=== PATIENT | male | born 1980 | race Caucasian/White ===

== ENCOUNTER 2016-10-08 17:37 | Emergency (ER) | payer BC, SELFPAY ==
[2016-10-08] MEDS ORDERED: KETOROLAC 30 MG/ML VIAL (J1885) As Ordered ONE (18:45)
[2016-10-08] MEDS ORDERED: METHOCARBAMOL 1,000 MG/10 ML VIAL (J2800) As Ordered ONE (18:46)
--- NOTE | 2016-10-08 20:10 | REPUSA ---
CLINICAL HISTORY: Trauma. TECHNIQUE: Multiple axial images were obtained through the cervical spine. Images were also reconstru cted in coronal and sagittal planes. The study was performed without IV contrast. COMMENTS: There is no fracture or spondylolisthesis visualized. The paraspinal soft tissues are unremarkable. T here are no lytic or blastic lesions. Straightening of cervical lordosis is seen, suggesting muscular spasm. There is evidence of minimal m ultilevel disk disease, demonstrated by osteophytosis and endplate sclerosis. There is posterior dis c herniation at C5-6 producing mild foraminal and canal stenosis. IMPRESSION: 1. No fracture or spondylolisthesis. 2. Straightening of cervical lordosis is seen, suggesting muscular spasm. 3. Multilevel spondylosis most severe at C5-C6. Thank you for your kind referral of this patient.
--- NOTE | 2016-10-08 20:20 | REPUSA ---
CLINICAL HISTORY: Back pain. TECHNIQUE: Multiple axial images were obtained through the L1-L2, L2-L3, L3-L4, L4-L5 and L5-S1 inter spaces. Images were also reconstructed in coronal and sagittal planes. COMMENTS: There is no fracture visualized. The paraspinal soft tissues are unremarkable. There are no lytic or blastic lesions. Straightening of lumbar lordosis is seen, suggesting muscular spasm. There is evidence of multilevel disk disease, demonstrated by osteophytosis ad endplate sclerosis. Evaluation of individual levels reveals the following: At L5-S1, broad-based disk protrusion in conjunction with hypertrophic facet disease results in moder ate bilateral foraminal narrowing. Canal is mildly stenotic. At L4-L5, broad-based disk bulge, results in mild bilateral foraminal narrowing. Canal is patent. Remaining levels are unremarkable. IMPRESSION: 1. No fracture or spondylolisthesis. 2. Straightening of lumbar lordosis is seen, suggesting muscular spasm. 3. At L5-S1, broad-based disk protrusion in conjunction with hypertrophic facet disease results in mo derate bilateral foraminal narrowing. Canal is mildly stenotic. 4/. At L4-L5, broad-based disk bulge, results in mild bilateral foraminal narrowing. Canal is patent. Thank you for your kind referral of this patient.
--- NOTE | 2016-10-08 20:45 | EDDOCDS ---
Physician Documentation [facility] Name: Aaron Julian Age: 35 yrs Sex: Male : 1980 Arrival Date: 10/08/2016 Time: 17:37 Bed Private MD: Juan Manuel Torres B Disposition: 10/08/16 20:33 Discharged to Home/Self Care. Impression: Concussion without loss of consciousness, Contusion of left shoulder, Contusion of left knee, Strain of muscle, fascia and tendon at neck level, Strain of muscle, fascia and tendon of lower back. - Condition is Stable. - Discharge Instructions: Back Pain, Adult, Shoulder Pain, Knee Pain, Soft Tissue Injury of the Neck, Concussion, Adult, [id number]. - Prescriptions for Diclofenac Sodium 75 mg Oral Tablet, Delayed Release (E.C.) - take 1 tablet by ORAL route 2 times per day; 30 tablet. Robaxin- 750 750 mg Oral Tablet - take 1 tablet by ORAL route every 6 hours As needed; 40 tablet. - Medication Reconciliation, Local Pharmacy Hours form. - Follow up: Juan Manuel Torres; When: Call to arrange an appointment; Reason: Further diagnostic work-up, Recheck today's complaints, Continuance of care. - Problem is new. - Symptoms have improved. Historical: - Allergies: no known allergies; - Home Meds: 1. Day-Quil Unknown every 6 hours (Last dose: 10/08/2016 16:15) - PMHx: none; - PSHx: Orthopedic Surgery; Appendectomy; - Immunization history: Last tetanus immunization: - up to date. - Social history: Smoking status: Patient states was never smoker of tobacco. No barriers to communication noted, The patient speaks fluent Urdu, Speaks appropriately for age. - Family history: Not pertinent. - : The pt / caregiver states he / she is not on anticoagulants. Home medication list is obtained from the patient. - Exposure Risk Screening:: None identified. Vital Signs: 10/08 17:39 BP 144 / 89; Pulse 77; Resp 16; Temp 97.4; Pulse Ox 99% ; Weight 83.91 kg / 184.99 lbs; cmb Height 6 ft. 2 in. (187.96 cm); Pain 8/10; 19:51 BP 139 / 89; Pulse 65; Resp 16; Temp 98; Pulse Ox 97% ; Pain 5/10; cjh 20:41 Pain 5/10; jf3 17:39 Body Mass Index 23.75 (83.91 kg, 187.96 cm) cmb Trauma Score (Adult): 17:54 Eye Response: spontaneous(1); Verbal Response: oriented(1); Motor Response: obeys mlb1 commands(2); Systolic BP: > 89 mm Hg(4); Respiratory Rate: 10 to 29 per min(4); Konstantin Score: 15; Trauma Score: 12 MDM: 18:42 Apply Alma Delia Collar to Patient. ordered. btw 18:43 ketorolac 30 mg IM once ordered. btw 18:43 Robaxin 250 mg IM once ordered. btw 18:43 CT Head Without Contrast Ordered. EDMS 18:44 Shoulder, Complete Ordered. EDMS 18:44 Knee, Complete Ordered. EDMS 18:44 CT Spine,Cervical W/o Contrast Ordered. EDMS 18:44 CT Spine, Lumbar W/o Contrast Ordered. EDMS Administered Medications: 18:53 Drug: ketorolac 30 mg [ketorolac 30 mg/mL (1 mL) injection solution (1 mL)] Route: IM; jf3 Site: left gluteus; 19:52 Follow up: Response: No Adverse Reaction; Pain is decreased; reports pain at 5/10, [facility] "tolerable level and better than before" 18:55 Drug: Robaxin 250 mg [Robaxin 100 mg/mL injection solution (2.5 mL)] Route: IM; Site: jf3 right gluteus; Signatures: Dispatcher [employer] EDMS Aditya Yañez RN RN mlb1 Chris Umanzor PA PA btw Wilman Smith RN RN jf3 Mildred Claros RN [facility] MTDD
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
--- NOTE | 2016-10-09 08:19 | REP ---
Clinical: Trauma . Technique: Internal rotation, external rotation, and Y view left . Findings: No acute fracture or dislocation. The acromioclavicular and glenohumeral joints are intact. No periarticular calcifications or degenerative changes are appreciated. Sub acromial space is normal. Surrounding soft tissues are unremarkable. Impression: Normal left shoulder radiographs. No acute fracture or dislocation. Signed by Jensen Nielson MD 10/09/2016 08:09 A
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
--- NOTE | 2016-10-10 21:45 | EDDOCDS ---
Physician Documentation [facility] Name: Aaron Julian Age: 35 yrs Sex: Male : 1980 Arrival Date: 10/08/2016 Time: 17:37 Bed Private MD: Juan Manuel Torres B Disposition: 10/08/16 20:33 Discharged to Home/Self Care. Impression: Concussion without loss of consciousness, Contusion of left shoulder, Contusion of left knee, Strain of muscle, fascia and tendon at neck level, Strain of muscle, fascia and tendon of lower back. - Condition is Stable. - Discharge Instructions: Back Pain, Adult, Shoulder Pain, Knee Pain, Soft Tissue Injury of the Neck, Concussion, Adult, [id number]. - Prescriptions for Diclofenac Sodium 75 mg Oral Tablet, Delayed Release (E.C.) - take 1 tablet by ORAL route 2 times per day; 30 tablet. Robaxin- 750 750 mg Oral Tablet - take 1 tablet by ORAL route every 6 hours As needed; 40 tablet. - Medication Reconciliation, Local Pharmacy Hours form. - Follow up: Juan Manuel Torres; When: Call to arrange an appointment; Reason: Further diagnostic work-up, Recheck today's complaints, Continuance of care. - Problem is new. - Symptoms have improved. Historical: - Allergies: no known allergies; - Home Meds: 1. Day-Quil Unknown every 6 hours (Last dose: 10/08/2016 16:15) - PMHx: none; - PSHx: Orthopedic Surgery; Appendectomy; - Immunization history: Last tetanus immunization: - up to date. - Social history: Smoking status: Patient states was never smoker of tobacco. No barriers to communication noted, The patient speaks fluent Hungarian, Speaks appropriately for age. - Family history: Not pertinent. - : The pt / caregiver states he / she is not on anticoagulants. Home medication list is obtained from the patient. - Exposure Risk Screening:: None identified. Vital Signs: 10/08 17:39 BP 144 / 89; Pulse 77; Resp 16; Temp 97.4; Pulse Ox 99% ; Weight 83.91 kg / 184.99 lbs; cmb Height 6 ft. 2 in. (187.96 cm); Pain 8/10; 19:51 BP 139 / 89; Pulse 65; Resp 16; Temp 98; Pulse Ox 97% ; Pain 5/10; cjh 20:41 Pain 5/10; jf3 17:39 Body Mass Index 23.75 (83.91 kg, 187.96 cm) [facility] Trauma Score (Adult): 17:54 Eye Response: spontaneous(1); Verbal Response: oriented(1); Motor Response: obeys mlb1 commands(2); Systolic BP: > 89 mm Hg(4); Respiratory Rate: 10 to 29 per min(4); Nelson Score: 15; Trauma Score: 12 MDM: 18:42 Apply Alma Delia Collar to Patient. ordered. btw 18:43 ketorolac 30 mg IM once ordered. btw 18:43 Robaxin 250 mg IM once ordered. btw 18:43 CT Head Without Contrast Ordered. EDMS 18:44 Shoulder, Complete Ordered. EDMS 18:44 Knee, Complete Ordered. EDMS 18:44 CT Spine,Cervical W/o Contrast Ordered. EDMS 18:44 CT Spine, Lumbar W/o Contrast Ordered. [facility] 21:13 [facility] Payment Agreement was scanned into Siri and attached to record. [facility] 21:13 Financial registration complete. [facility] 10/09 11:03 T-Sheet-- Draft Copy was scanned into Siri and attached to record. gb Administered Medications: 10/08 18:53 Drug: ketorolac 30 mg [ketorolac 30 mg/mL (1 mL) injection solution (1 mL)] Route: IM; jf3 Site: left gluteus; 19:52 Follow up: Response: No Adverse Reaction; Pain is decreased; reports pain at 5/10, [facility] "tolerable level and better than before" 20:44 Follow up: Response: Pain is decreased jf3 18:55 Drug: Robaxin 250 mg [Robaxin 100 mg/mL injection solution (2.5 mL)] Route: IM; Site: jf3 right gluteus; 20:44 Follow up: Response: Pain is decreased jf3 Signatures: Dispatcher [employer] EDMS Flavia Barnes, Reg Reg gb Aditya Yañez RN RN mlb1 Chris Umanzor PA PA btw Wilman Smith RN RN jf3 Apurva Ware b Mildred Claros RN [facility] The chart was reviewed and I authenticate all verbal orders and agree with the evaluation and treatment provided.Attachments: 21:13 [facility] Payment Agreement gjb 10/09 11:03 T-Sheet-- Draft Copy gb Chart Complete MTDD
--- NOTE | 2016-10-10 21:45 | EDDOCDS ---
Physician Documentation [facility] Name: Aaron Julian Age: 35 yrs Sex: Male : 1980 Arrival Date: 10/08/2016 Time: 17:37 Bed Private MD: Juan Manuel Torres B Disposition: 10/08/16 20:33 Discharged to Home/Self Care. Impression: Concussion without loss of consciousness, Contusion of left shoulder, Contusion of left knee, Strain of muscle, fascia and tendon at neck level, Strain of muscle, fascia and tendon of lower back. - Condition is Stable. - Discharge Instructions: Back Pain, Adult, Shoulder Pain, Knee Pain, Soft Tissue Injury of the Neck, Concussion, Adult, [id number]. - Prescriptions for Diclofenac Sodium 75 mg Oral Tablet, Delayed Release (E.C.) - take 1 tablet by ORAL route 2 times per day; 30 tablet. Robaxin- 750 750 mg Oral Tablet - take 1 tablet by ORAL route every 6 hours As needed; 40 tablet. - Medication Reconciliation, Local Pharmacy Hours form. - Follow up: Juan Manuel Torres; When: Call to arrange an appointment; Reason: Further diagnostic work-up, Recheck today's complaints, Continuance of care. - Problem is new. - Symptoms have improved. Historical: - Allergies: no known allergies; - Home Meds: 1. Day-Quil Unknown every 6 hours (Last dose: 10/08/2016 16:15) - PMHx: none; - PSHx: Orthopedic Surgery; Appendectomy; - Immunization history: Last tetanus immunization: - up to date. - Social history: Smoking status: Patient states was never smoker of tobacco. No barriers to communication noted, The patient speaks fluent Nepali, Speaks appropriately for age. - Family history: Not pertinent. - : The pt / caregiver states he / she is not on anticoagulants. Home medication list is obtained from the patient. - Exposure Risk Screening:: None identified. Vital Signs: 10/08 17:39 BP 144 / 89; Pulse 77; Resp 16; Temp 97.4; Pulse Ox 99% ; Weight 83.91 kg / 184.99 lbs; cmb Height 6 ft. 2 in. (187.96 cm); Pain 8/10; 19:51 BP 139 / 89; Pulse 65; Resp 16; Temp 98; Pulse Ox 97% ; Pain 5/10; cjh 20:41 Pain 5/10; jf3 17:39 Body Mass Index 23.75 (83.91 kg, 187.96 cm) [place] Trauma Score (Adult): 17:54 Eye Response: spontaneous(1); Verbal Response: oriented(1); Motor Response: obeys mlb1 commands(2); Systolic BP: > 89 mm Hg(4); Respiratory Rate: 10 to 29 per min(4); Decker Score: 15; Trauma Score: 12 MDM: 18:42 Apply Alma Delia Collar to Patient. ordered. btw 18:43 ketorolac 30 mg IM once ordered. btw 18:43 Robaxin 250 mg IM once ordered. btw 18:43 CT Head Without Contrast Ordered. EDMS 18:44 Shoulder, Complete Ordered. EDMS 18:44 Knee, Complete Ordered. EDMS 18:44 CT Spine,Cervical W/o Contrast Ordered. EDMS 18:44 CT Spine, Lumbar W/o Contrast Ordered. [facility] 21:13 [facility] Payment Agreement was scanned into [employer] and attached to record. [facility] 21:13 Financial registration complete. [facility] 10/09 11:03 T-Sheet-- Draft Copy was scanned into [employer] and attached to record. gb Administered Medications: 10/08 18:53 Drug: ketorolac 30 mg [ketorolac 30 mg/mL (1 mL) injection solution (1 mL)] Route: IM; jf3 Site: left gluteus; 19:52 Follow up: Response: No Adverse Reaction; Pain is decreased; reports pain at 5/10, [facility] "tolerable level and better than before" 20:44 Follow up: Response: Pain is decreased jf3 18:55 Drug: Robaxin 250 mg [Robaxin 100 mg/mL injection solution (2.5 mL)] Route: IM; Site: jf3 right gluteus; 20:44 Follow up: Response: Pain is decreased jf3 Signatures: Dispatcher [employer] EDMS Flavia Barnes, Reg Reg gb Aditya Yañez RN RN mlb1 Chris Umanzor PA PA btw Wilman Smith RN RN jf3 Apurva Ware b Mildred Claros RN [facility] The chart was reviewed and I authenticate all verbal orders and agree with the evaluation and treatment provided.Attachments: 21:13 [facility] Payment Agreement gjb 10/09 11:03 T-Sheet-- Draft Copy gb Chart Complete MTDD
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
[2016-10-13] MEDS ORDERED: DICL75TA PO (15:16)
[2016-10-13] MEDS ORDERED: ROBA750T4 PO (15:16)
== END 2016-10-08 20:44 | disposition home or self-care (01) ==
LOC: M ED 17:37
DX: S06.0X9A Concussion with loss of consciousness of unspecified duration, initial encounter (principal); S13.4XXA Sprain of ligaments of cervical spine, initial encounter; S80.02XA Contusion of left knee, initial encounter; S40.012A Contusion of left shoulder, initial encounter; V86.52XA Driver of snowmobile injured in nontraffic accident, initial encounter; Y92.9 Unspecified place or not applicable; Y93.29 Activity, other involving ice and snow; Y99.9 Unspecified external cause status
CPT/HCPCS: 70450; 72125; 72131; 73030; 73564; 96372; 99284; J1885; J2800

== ENCOUNTER → 2016-10-15 | Outpatient (CLI) | payer BC, SELFPAY ==
[~2016-10-15] VITALS: Ht 165.1 cm; Wt 86.8 kg
[~2016-10-15] MED LIST: DICL75TA PO; LIDOCAINE 2% INJ 100 MG/5 ML SDV (FOR ANES.) As Ordered ONE; NS 1,000 ML IV SCH; PROPOFOL 500 MG/50 ML VIAL As Ordered ONE; ROBA750T4 PO
--- NOTE | 2016-10-15 10:16 | ROOR ---
Patient Name: Aaron Julian Procedure Date: 10/15/2016 9:55 AM Date of : 1980 Age: 35 Room: [facility] Gender: Male Note Status: Finalized Procedure: Colonoscopy to Cecum + ileoscopy Indications: Abdominal pain in the right lower quadrant Providers: Ray Maya MD Referring MD: Juan Manuel Torres Requesting Provider: Medicines: Monitored Anesthesia Care Complications: No immediate complications. Procedure: Pre-Anesthesia Assessment: - The heart rate, respiratory rate, oxygen saturations, blood pressure, adequacy of pulmonary ventilation, and response to care were monitored throughout the procedure. The Colonoscope was introduced through the anus and advanced to the ileocecal valve. The colonoscopy was performed without difficulty. The patient tolerated the procedure well. The quality of the bowel preparation was excellent. Findings: The perianal and digital rectal examinations were normal. No other significant abnormalities were identified in a careful examination of the remainder of the colon. The terminal ileum appeared normal. The exam was otherwise without abnormality. Impression: - The examined portion of the ileum was normal. - The examination was otherwise normal. - No specimens collected. - The exam was otherwise normal to the cecum. Recommendation: - Patient has a contact number available for emergencies. The signs and symptoms of potential delayed complications were discussed with the patient. Return to normal activities tomorrow. Written discharge instructions were provided to the patient. - High fiber diet. - Discharge patient to home. - Continue present medications. - Repeat colonoscopy at age 48 for screening purposes. - Return to referring physician. - The findings and recommendations were discussed with the patient's family. Ray Maya MD Ray Maya MD 10/15/2016 10:16:10 AM This report has been signed electronically. Number of Addenda: 0 Note Initiated On: 10/15/2016 9:55 AM Estimated Blood Loss: Estimated blood loss: none.
[2016-10-15 10:50] VITALS: BP 186/76
== END | disposition home or self-care (01) ==
LOC: M OPP 08:59
PROVIDERS: ATTEND Internal Medicine Gastroenterology
DX: R10.31 Right lower quadrant pain (principal); Z79.899 Other long term (current) drug therapy

== ENCOUNTER → 2017-10-19 | Outpatient (CLI) | payer BC | LOC: M WUC 11:14 | DX: M51.37 Other intervertebral disc degeneration, lumbosacral region (principal); M43.17 Spondylolisthesis, lumbosacral region | CPT/HCPCS: 72110 ==

== ENCOUNTER → 2021-05-27 | Outpatient (CLI) | payer BC ==
[~2021-05-27] MED LIST changes: -LIDOCAINE 2% INJ 100 MG/5 ML SDV (FOR ANES.) As Ordered ONE; -NS 1,000 ML IV SCH; -PROPOFOL 500 MG/50 ML VIAL As Ordered ONE
--- NOTE | 2021-05-27 16:59 | REP ---
INDICATION: LT WRIST PAIN. COMPARISON: Radiographs 02/17/2021, as well as subsequent exams. TECHNIQUE: Multiple sequences obtained in the axial, coronal and sagittal planes. FINDINGS: Triangular fibrocartilage complex:There may be a partial tear of the triangular fibrocartilage complex at the ulnar styloid insertion. Scapholunate and lunatotriquetral ligaments: Intact. Flexor and extensor tendons: There is tendinitis or strain of the extensor digitorum tendons at the level of the distal end of the radius. Carpal tunnel region: No significant abnormality. No abnormal signal in median nerve. No ganglion cyst is seen. Joint fluid: No effusion. Distal radioulnar joint: There is a tiny amount of fluid present. Bone marrow:The previously noted fracture of the distal end of the radius demonstrates advanced healing with very mild residual marrow edema in a subarticular location. The previously noted triquetral fracture demonstrates advanced healing with minimal residual marrow edema present. There is diffuse cartilaginous thinning at the distal end of the radius, with fissuring at the site of the prior fracture. IMPRESSION: Possible partial tear triangular fibrocartilage complex at the ulnar styloid insertion. Tendinitis or strain of the extensor digitorum tendons at the level of the distal end of the radius. The previously noted fractures of the distal radius and triquetrum demonstrate advanced healing with minimal residual marrow edema. Diffuse cartilaginous thinning at the distal end of the radius, with fissuring at the site of the prior fracture. <Electronically signed by Andres Phillips > 05/27/21 [id number]
== END ==
LOC: M PLAIMG 11:07
PROVIDERS: ATTEND Orthopaedic Surgery
DX: M25.532 Pain in left wrist (principal); S52.502D Unspecified fracture of the lower end of left radius, subsequent encounter for closed fracture with routine healing; X58.XXXD Exposure to other specified factors, subsequent encounter; Y92.9 Unspecified place or not applicable; Y93.9 Activity, unspecified; Y99.9 Unspecified external cause status

== ENCOUNTER → 2021-12-25 | Outpatient (CLI) | payer BC | LOC: M LABSMTC 10:05 | PROVIDERS: ATTEND Anesthesiology | DX: Z11.52 Encounter for screening for COVID-19 (principal); Z20.822 Contact with and (suspected) exposure to COVID-19 ==

== ENCOUNTER 2021-12-30 08:58 | Day surgery (SDC) | payer BC ==
[~2021-12-30] VITALS: Ht 190.5 cm; Wt 93.9 kg
[~2021-12-30 08:58] MED LIST changes: +LR 1,000 ML IV ONE
[2021-12-30] MEDS ORDERED: ONDANSETRON 4MG/2ML VIAL As Ordered ONE (11:14)
[2021-12-30] MEDS ORDERED: fentaNYL 100 MCG/2 ML INJECTION As Ordered ONE (11:14)
[2021-12-30] MEDS ORDERED: propofoL 200 MG/20 ML VIAL As Ordered ONE (11:14)
[2021-12-30] MEDS ORDERED: LIDOCAINE 2% 100MG/5ML SDV (FOR ANES.) As Ordered ONE (11:14)
[2021-12-30] MEDS ORDERED: ROCURONIUM BROMIDE 50 MG/5 ML VIAL As Ordered ONE (11:14)
[2021-12-30] MEDS ORDERED: dexameTHASONE 4 MG/ML 1ML VIAL (J1100 PER 1MG) As Ordered ONE (11:14)
[2021-12-30] MEDS ORDERED: MIDAZOLAM INJ 2MG/2ML VIAL (J2250 PER 1MG) As Ordered ONE (11:15)
[2021-12-30] MEDS ORDERED: LIDOCAINE 2% JELLY 5ML TUBE As Ordered ONE (11:39)
[2021-12-30] MEDS ORDERED: LIDOCAINE W/EPINEPHRINE 1% 20ML VIAL As Ordered ONE (11:39)
[2021-12-30] MEDS ORDERED: ACETAMINOPHEN 1000MG 100ML IV BTL (OFIRMEV) (J0131 PER 10MG) As Ordered ONE (12:44)
[2021-12-30] MEDS ORDERED: SUGAMMADEX SODIUM 500 MG/5 ML VIAL (BRIDION) As Ordered ONE (12:48)
[2021-12-30] MEDS ORDERED: COCAINE 4% 4ML NASAL SOLUTION BTL As Ordered ONE (12:54)
[2021-12-30] MEDS ORDERED: METOCLOPRAMIDE INJ 10MG/2ML VIAL (J2765 PER 1) IV PRN (13:45)
[2021-12-30] MEDS ORDERED: LR 1,000 ML IV SCH ×2 (13:45→13:50)
[2021-12-30] MEDS ORDERED: ONDANSETRON 4MG/2ML VIAL IV PRN ×2 (13:45→13:50)
[2021-12-30] MEDS ORDERED: ANEXSIA, NORCO 7.5MG/325MG TABLET(HYDROCODONE/APAP) PO PRN (13:50)
[2021-12-30 14:05] VITALS: BP 137/75
== END 2021-12-30 14:25 | disposition home or self-care (01) ==
LOC: M SDC 08:58
PROVIDERS: ATTEND Otolaryngology
DX: R04.0 Epistaxis (principal)
CPT/HCPCS: 30901; C9046; J0131; J1100; J2250; J2405; J3010

== ENCOUNTER → 2022-04-29 | Outpatient (CLI) | payer BC ==
[~2022-04-29] MED LIST changes: -LR 1,000 ML IV ONE
== END ==
LOC: M PLAIMG 14:04
PROVIDERS: ATTEND Chiropractor
DX: M54.50 Low back pain, unspecified (principal); M47.816 Spondylosis without myelopathy or radiculopathy, lumbar region